=== PATIENT | female | born 1945 | race Caucasian/White ===

== ENCOUNTER 2023-04-28 10:47 | Outpatient (CLI) | payer MEDICARE ==
--- NOTE | 2023-04-28 12:07 | XRAY Report ---
PROCEDURE: Foot 2 View LT INDICATIONS: FOOT PAIN,LEFT TECHNIQUE: 2 views of the foot were acquired. COMPARISON: None. FINDINGS: Bones: No fractures or dislocations. No suspicious bony lesions. Plantar calcaneal enthesophyte. First MTP joint space narrowing with bony bunion formation. Soft tissues: No suspicious soft tissue calcifications or masses. IMPRESSION: No acute bony abnormality. Plantar calcaneal enthesophyte. First MTP osteoarthritis. Reviewed by: Mat Guthrie on 04/28/2023 12:06 PM PDT Approved by: Mat Guthrie on 04/28/2023 12:06 PM PDT Station ID: [id number]
== END 2023-04-28 10:48 | disposition home or self-care (01) ==
LOC: DI.S 10:47
PROVIDERS: ATTEND Registered Nurse
DX: M77.32 Calcaneal spur, left foot (principal); M19.072 Primary osteoarthritis, left ankle and foot